=== PATIENT | male | born 1960 | race Caucasian/White ===

== ENCOUNTER → 2020-05-25 07:27 | Outpatient (CLI) | payer OTHER, SELFPAY ==
--- NOTE | 2020-05-25 07:35 | CDU_ITS ---
Reason For Study: Right carotid artery occlusion Rt. Velocities/BP Lt. Velocities/BP Rt CCA is Occluded. Prox CCA 73.6/22.5 cm/sec. Rt ICA is Occluded. Mid CCA 77.3/26.1 cm/sec. Prox ECA 121.1/18.8 cm/sec. Dist CCA 65.5/18.8 cm/sec. Rt. Vert. 80.9/17 cm/sec. Prox ICA 122.5/31.9 cm/sec. Mid ICA 70.9/24.8 cm/sec. Dist ICA 117/27 cm/sec. Lt. ICA/CCA = 1.7. Prox ECA 285.4/76.9 cm/sec. Lt. Vert. 73.6/13.3 cm/sec. Right Extracranial The right common carotid artery is occluded. The right internal carotid artery is occluded. There is intimal thickening but no significant atherosclerotic plaque noted in the right external carotid artery. Antegrade flow is noted in the right vertebral artery. Left Extracranial There is homogeneous, smooth atherosclerotic plaque noted in the left common carotid artery. There is heterogeneous, irregular atherosclerotic plaque noted in the left internal carotid artery. There is intimal thickening but no significant atherosclerotic plaque noted in the left external carotid artery. The left external carotid artery is not well visualized. Antegrade flow is noted in the left vertebral artery. Procedure Carotid Duplex 99729. This is a Carotid Duplex examination using B-mode, color flow and specral Doppler. Exam performed in department. Interpretation Summary The right internal carotid artery appears to be totally occluded. Mild (<50%) stenosis left extracranial internal carotid. Flow within the vertebral arteries is antegrade bilaterally. Ordering Physician: Christiano Cornejo Referring Physician: Christiano Alaniz Performed By: Katharina Calderon RVT
--- NOTE | 2020-05-25 07:35 | AAVD_ITS ---
Reason For Study: AAA Aorta Measurements Aorta Doppler Measurements Proximal aorta measures1.41x 1.41cm. in cross- Peak systolic flow velocities within the proximal sectional axis. aorta measure 59.8 cm/sec. Proximal aorta measures1.40cm. in longitudinal Peak systolic flow velocities within the mid aorta axis. measure 68.6 cm/sec. Mid aorta measures1.53 x 1.53cm. in cross- Peak systolic flow velocities within the distal sectional axis. aorta measure 80.9 cm/sec. Mid aorta measures1.55cm. in longitudinal axis. Distal aorta measures1.39 x 1.37cm. in cross- sectional axis. Distal aorta measures1.37cm. in longitudinal axis. Left Iliac Artery Left iliac artery measures 0.65 x 0.65 cm. in the cross-sectional axis. Left iliac artery measures 0.65 cm. in the longitudinal axis. Peak systolic velocity in the left iliac artery measures 106.7 cm/sec. Right Iliac Artery Right iliac artery measures 0.69 x 0.67 cm. in the cross-sectional axis. Right iliac artery measures 0.65 cm. in the longitudinal axis. Peak systolic velocity in the right iliac artery measures 133 cm/sec. Procedure Aorta IVC Iliac vasculature or bypass grafts [id number]. Exam performed in department. Interpretation Summary No aortoiliac aneurysm or stenosis. Ordering Physician: Christiano Cornejo Referring Physician: Christiano Alaniz Performed By: Katharina Calderon RVT
--- NOTE | 2020-05-25 07:35 | ART_ITS ---
Reason For Study: PVD Procedure A bilateral lower extremity continuous wave Doppler with analog waveform analysis and ankle brachial indexes. Left Segmental Pressures Left brachial= 177mmHg. Left posterior tibial artery = 196mmHg. Left dorsalis pedis artery = 164mmHg. Left digit = 125 mmHg. The left dorsalis pedis waveforms are biphasic. The left posterior tibial artery waveforms are triphasic. Right Segmental Pressures Right brachial= 182mmHg. Right posterior tibial artery = 195mmHg. Right dorsalis pedis artery = 184mmHg. Right digit = 120 mmHg. The right dorsalis pedis waveforms are biphasic. The right posterior tibial artery waveforms are triphasic. Indices The right ankle brachial index by the dorsalis pedis is 1.01. The right ankle brachial index by the posterior tibial artery is 1.07. The right digital-brachial index is 0.66. The left ankle brachial index by the dorsalis pedis is 0.90. The left ankle brachial index by the posterior tibial artery is 1.08. The left digital-brachial index is 0.69. Interpretation Summary Bilateral normal at rest with triphasic flow and JERRELL 1.07 and 1.08 and DBI 0.66 and 0.69. Ordering Physician: Christiano Cornejo Referring Physician: Christiano Alaniz Performed By: Katharina Calderon RVT
== END ==
PROVIDERS: PCP Family Medicine; Referring Provider Surgery Vascular Surgery; Visit Provider Surgery Vascular Surgery
DX: I71.4 Abdominal aortic aneurysm, without rupture (principal); I65.21 Occlusion and stenosis of right carotid artery; I73.9 Peripheral vascular disease, unspecified
CPT/HCPCS: 93880; 93922; 93978